=== PATIENT | female | born 1955 | race Caucasian/White ===

== ENCOUNTER → 2021-12-04 16:02 | Outpatient (CLI) | payer MEDICARE, OTHER, SELFPAY ==
--- NOTE | 2021-12-04 | DI.RAD.S_ITS ---
PROCEDURE: XR SHOULDER RT MIN 2V INDICATIONS: RT SHOULDER LIMITED MOVEMENT AFTER FALL TECHNIQUE: 3 views of the shoulder were acquired. COMPARISON: None. FINDINGS: Bones: No fractures or dislocations. Mild acromioclavicular joint and glenohumeral joint osteoarthritic changes are seen. No suspicious bony lesions. Visualized ribs appear intact. Soft tissues: No suspicious soft tissue calcifications. IMPRESSION: Mild right shoulder joint osteoarthritis. No acute fracture or dislocation. Dictated by: Mo Mcpherson M.D. on 12/04/2021 at 16:49 Approved by: Mo Mcpherson M.D. on 12/04/2021 at 16:50
== END ==
DX: S49.91XA Unspecified injury of right shoulder and upper arm, initial encounter (principal); M25.611 Stiffness of right shoulder, not elsewhere classified; M19.011 Primary osteoarthritis, right shoulder; W19.XXXA Unspecified fall, initial encounter
CPT/HCPCS: 73030

== ENCOUNTER 2022-12-04 19:25 | Inpatient (IN) | payer MEDICARE, SELFPAY ==
[2022-12-04] VITALS (8 sets, daily range): BP systolic 94–130; BP diastolic 51–74; PULSE 71–87; RESP 16–22; TEMP 36.9–38.1; O2SAT 95–99; BMI 20.2; BMI 20.6
--- NOTE | 2022-12-04 19:33 | DI.CT.S_ITS ---
PROCEDURE: CT ABDOMEN PELVIS W CON INDICATIONS: RLQ pain TECHNIQUE: After the administration of IV contrast, axial sections were acquired from the lung bases to the pubic symphysis. Coronal and sagittal reformats were performed. For radiation dose reduction, the following was used: automated exposure control, adjustment of mA and/or kV according to patient size. COMPARISON: None. FINDINGS: Image quality: Excellent. Lung bases: There is mild dependent atelectasis bilaterally. Heart: Heart is normal in size. ABDOMEN: Liver: Within the inferior right hepatic lobe in segment 6, there is an oval lesion measuring up to 1.5 cm on series 2, image 36 with a hypervascular eccentric component. Findings likely represent a hemangioma. A hypodense lesion anteriorly in the left hepatic lobe within segment 3 measuring 1.0 cm on series 2, image 22 is suggestive of a slightly hyperdense cyst. Within segment 7, there is a hyperdense focus on series 2, image 12 measuring 0.6 cm which is also nonspecific and may represent a flash filling hemangioma. Gallbladder: Within normal limits without calcified gallstones. Biliary ducts: No biliary ductal dilatation. Pancreas: Unremarkable. Spleen: Normal in size. Adrenal Glands: No adrenal nodules. Kidneys and Ureters: No hydronephrosis. Stomach and Bowel: Stomach and small bowel loops are normal in caliber and wall thickness. The appendix is normal. There is segmental bowel wall thickening within the mid transverse colon with mucosal enhancement and prominent pericolonic fat stranding. There is also heterogeneous infiltration of the adjacent omentum. No associated upstream dilatation to suggest obstruction. Peritoneum: No abnormal intraperitoneal fluid. No free air. Ventral Wall: No hernia. Abdominal Nodes: No retroperitoneal or mesenteric adenopathy by size criteria. Vessels: Aorta and inferior vena cava are normal in size. PELVIS: Pelvic Organs: Unremarkable. Bladder: Unremarkable. Pelvic Nodes: No enlarged lymph nodes. Miscellaneous: No inguinal hernias are seen. Bones: Visualized osseous structures demonstrate no suspicious focal lesions. IMPRESSION: 1. No evidence of appendicitis. 2. Segmental wall thickening in the mid transverse colon with pericolonic fat stranding. Although the findings may represent a localized colitis, the degree of wall thickening and short segment involvement is suspicious for a neoplasm. Recommend further evaluation with colonoscopy. 3. Heterogeneous infiltration of the omentum adjacent to the thickened colonic wall segment may represent reactive inflammatory changes but the differential includes carcinomatosis. 4. Multiple nonspecific hepatic lesions as described. Further characterization may be obtained with a liver protocol MRI. Dictated by: Danyel Davenport M.D. on 12/04/2022 at 20:18 Approved by: Danyel Davenport M.D. on 12/04/2022 at 20:37
--- NOTE | 2022-12-04 19:34 | ED.GENADULT ---
HPI - General Adult General Chief complaint: Abdominal Pain Stated complaint: Rt. Lower abd pain Time Seen by Provider: 12/04/22 19:26 History of Present Illness HPI narrative: 67-year-old woman with history of hypertension, hyperlipidemia developed right lower quadrant pain starting around noon today. She describes it as sharp, stabbing getting to the point where the pain was unrelenting, she was seen in clinic on [facility] and transported to [place] ER via airlift. She reports dry heaving, No fevers, cough, chills. She is had no significant intra-abdominal surgery. She does note over the past couple of days she is had dark foul-smelling stools. Does not note any recent weight changes. Related Data Allergies Allergy/AdvReac Type Severity Reaction Status Date / Time No Known Drug Allergies Allergy Verified 12/04/22 19:50 Review of Systems Review of Systems Narrative: Pertinent positive and negative findings as per HPI Patient History Medical History Hyperlipidemia Hypertension Social History Smoking Status: Never smoker Exam Initial Vital Signs Initial Vital Signs: Vital Signs Temperature 100.6 F H 12/04/22 19:34 Pulse Rate 71 12/04/22 19:34 Respiratory Rate 16 12/04/22 19:34 Blood Pressure 130/74 12/04/22 19:34 Pulse Oximetry 99 12/04/22 19:34 Oxygen Delivery Method Room Air 12/04/22 19:34 General: Pale, appears to be in pain Able to give a complete and coherent history. Well-nourished well-developed HEENT: Moist mucous membranes, normal sclera with reactive pupils, Respiratory: Lungs are clear to auscultation, no wheezing no rales no rhonchi. Full and symmetrical air movement Cardiac: Regular rate and rhythm no murmurs no bruits Abdomen: Soft, significant tenderness right lower quadrant without acute peritoneal signs, no guarding. Good bowel tones, no flank pain Skin: Warm and dry, no rashes Neurologic: Grossly neurologically intact with no obvious asymmetries or abnormalities Extremities: No trauma, well perfused Psych: Cooperative, appropriate insight and affect Course Orders Ordered: ED Orders 12/04/22 19:33 CT abdomen pelvis w con Stat Urinalysis and Microscopic Stat 12/04/22 19:40 Complete Blood Count AUTO DIFF Stat Comprehensive Metabolic Panel Stat Hydromorphone HCl (Hydromorphone 0.5 Mg Inj) 0.5 mg IV Q15MIN PRN PRN Reason: Pain, Last Admin: 12/04/22 20:17 Dose: 0.5 mg Documented By: Discontinued Medications Sodium Chloride (Normal Saline 0.9%) 1,000 mls @ 1,000 mls/hr IV BOLUS ONE Stop: 12/04/22 20:32 Last Admin: 12/04/22 20:04 Dose: 1,000 mls/hr Documented By: Vital Signs Vital signs: Vital Signs - 8 hr 12/04/22 19:34 Temperature 100.6 F H Pulse Rate 71 Respiratory Rate 16 Blood Pressure 130/74 Pulse Oximetry 99 Oxygen Delivery Method Room Air Medical Decision Making Lab Data 12/04/22 19:40 12/04/22 19:40 Labs: Lab Results 12/04/22 12/04/22 Range/Units 19:40 19:40 WBC 11.7 H (4.5-11.0) X10^3/uL RBC 4.64 (4.0-5.2) X10^6/uL Hgb 14.4 (12.0-16.0) g/dL Hct 42.2 (36-46) % MCV 90.8 (80-100) fL MCH 31.1 (26-34) PG MCHC 34.2 (30-36) % RDW 13.4 (11.6-14.8) % Plt Count 196 (150-400) X10^3/uL Neut % (Auto) 90.9 H (50-75) % Lymph % (Auto) 5.0 L (25-40) % [place] % (Auto) 4.0 (3-14) % Eos % (Auto) 0.0 L (2-4) % Baso % (Auto) 0.1 (0-2) % Neut # (Auto) 99501 H (2808-2644) /uL Lymph # (Auto) 600 L (4956-1806) /uL [place] # (Auto) 500 (0-900) /uL Eos # (Auto) 0 (0-450) /uL Baso # (Auto) 0 (0-100) /uL Sodium 135 L (137-145) mmol/L Potassium 3.8 (3.4-5.1) mmol/L Chloride 99 (98-107) mmol/L Carbon Dioxide 29 (22-32) mmol/L BUN 20 H (7-17) mg/dL Creatinine 0.81 (0.52-1.04) mg/dL Estimated GFR > 60 (>60) mL/min BUN/Creatinine Ratio 24.7 H (6-22) Glucose 117 H (80-110) mg/dL Calcium 9.0 (8.4-10.2) mg/dL Total Bilirubin 1.9 H (0.2-1.3) mg/dL AST 40 H (14-36) IU/L ALT 31 (<35) IU/L Alkaline Phosphatase 59 (38-126) U/L Total Protein 7.6 (6.3-8.2) g/dL Albumin 4.6 (3.5-5.0) g/dL Globulin 3.0 (1.7-4.1) g/dL Albumin/Globulin Ratio 1.5 (1.0-2.8) MDM Narrative Medical decision making narrative: CC: Acute right lower quadrant pain, uncertain prognosis Complicating co-morbidities: Hypertension, hyperlipidemia Data collected from: patient, airlift transport staff Social determinants of health that may influence the patients condition: Lives on [facility] Differential considered: Appendicitis, constipation, volvulus Exam documented above, pertinent findings include: Appears to be in moderate pain but able to cooperate fully, moderate right lower quadrant tenderness Lab Test results independently reviewed as above. Pertinent findings: CBC shows slight leukocytosis 11.7 with left shift, no anemia Chemistries show slightly elevated bilirubin at 1.9, AST of 40 ALT and alk phos are unremarkable. Independently reviewed EKG as above Imaging studies independently reviewed: CT scan per radiology: ? 1. No evidence of appendicitis. ? 2. Segmental wall thickening in the mid transverse colon with pericolonic fat stranding.? Although the findings may represent a localized colitis, the degree of wall thickening and short segment involvement is suspicious for a neoplasm.? Recommend further evaluation with colonoscopy. ? 3. Heterogeneous infiltration of the omentum adjacent to the thickened colonic wall segment may represent reactive inflammatory changes but the differential includes carcinomatosis. ? 4. Multiple nonspecific hepatic lesions as described.? Further characterization may be obtained with a liver protocol MRI.? Consultations: Dr Temple, gen surgery Treatments: Fluids, parenteral narcotics for pain control Re-evaluations: Findings and concerns reviewed with patient. She notes that she has had increasing bloating and abdominal pain and most recent colonoscopy was unable to be completed due to redundant transverse colon with the study in 2021. Discussion: 67-year-old woman with severe abdominal pain since noon today. On further questioning she notes that she had a colonoscopy in 2021 was found to have redundant colon so they were not able to complete the study, for the last 6 months they have been trying to reschedule the colonoscopy and she is actually scheduled to have a repeat colonoscopy with a 2 day prep on December 11. Findings reviewed with general surgeon as well as patient. CT scan findings are quite concerning but further diagnosis is going to be needed before any type of transfer can be facilitated if required. In the meantime pain is significant enough that discharge home is not going to be appropriate. We will plan to admit to the General surgery Service, Dr. Temple is writing orders. We will continue maintenance fluid, pain medications and begin GoLYTELY bowel prep immediately. Patient will be admitted to the surgery service. Discharge Plan Departure Patient Disposition: Admitted as Observation Clinical Impression: Abdominal pain, Colon abnormality
[2022-12-04 19:47] LABS: Add Manual Diff / Slide Review NO; Basophils Absolute Auto 0 /uL (0-100); Basophils Percent Auto 0.1 % (0-2); Eosinophils Absolute Auto 0 /uL (0-450); Hematocrit 42.2 % (36-46); Hemoglobin 14.4 g/dL (12.0-16.0); Lymphocytes Absolute Auto 600 /uL (1100-4500); Mean Corpuscular HGB Conc 34.2 % (30-36); Mean Corpuscular Hemoglobin 31.1 PG (26-34); Mean Corpuscular Volume 90.8 fL (80-100); Monocytes Absolute Auto 500 /uL (0-900); Neutrophils Absolute Auto 10600 /uL (1500-7000); Neutrophils Percent Auto 90.9 % (50-75); Platelet Count 196 X10^3/uL (150-400); Red Blood Cell Count 4.64 X10^6/uL (4.0-5.2); Red Cell Distribution Width 13.4 % (11.6-14.8); White Blood Cell Count 11.7 X10^3/uL (4.5-11.0)
[2022-12-04 19:58] LABS: Alanine Aminotransferase 31 IU/L (<35); Albumin 4.6 g/dL (3.5-5.0); Albumin Globulin Ratio 1.5 (1.0-2.8); Alkaline Phosphatase 59 U/L (38-126); Aspartate Aminotransferase 40 IU/L (14-36); BUN Creatinine Ratio 24.7 (6-22); Bilirubin Total 1.9 mg/dL (0.2-1.3); Blood Urea Nitrogen 20 mg/dL (7-17); Carbon Dioxide 29 mmol/L (22-32); Chloride 99 mmol/L (98-107); Estimated Glomerular Filt Rate > 60 mL/min (>60); Glucose 117 mg/dL (80-110); HEMOLYSIS 23 (0-50); Potassium 3.8 mmol/L (3.4-5.1); Sodium 135 mmol/L (137-145); Total Protein 7.6 g/dL (6.3-8.2)
[2022-12-04] MEDS: SODIUM CHLORIDE 0.9% 1,000 ML 1000 ML IV (20:04)
[2022-12-04] MEDS: HYDROMORPHONE 0.5 MG INJ IV ×2 (20:17→23:56)
[2022-12-04 23:17] LABS: Appearance Urine UA CLEAR; Bilirubin Urine UA NEGATIVE (NEGATIVE); Color Urine UA YELLOW; Glucose Urine UA NEGATIVE (Negative); Ketones Urine UA NEGATIVE (NEGATIVE); Leukocyte Esterase Urine UA NEGATIVE (NEGATIVE); Nitrite Urine UA NEGATIVE (Negative); Occult Blood Urine UA NEGATIVE (Negative); Protein Urine UA NEGATIVE (Negative); Urobilinogen Urine UA 0.2 E.U./dL (0.2)
[2022-12-04 23:20] LABS: Carcinoembryonic Antigen 6.9 ng/mL (0.1-3.0)
--- NOTE | 2022-12-04 23:20 | PC.NURSE ---
Called report to Debra PURI. Pt A&Ox4 on transfer with at bedside.
[2022-12-04 23:24] LABS: Bacteria Urine None Seen; Culture Indicated Urine Cult Not Indicated; RBC Urine 0-1/HPF (0-5/HPF); Squamous Epithelial Cell Urine 0-1 /HPF (0-5/HPF); WBC Urine None Seen (0-5/HPF); pH Urine UA 7.5 (4.5-8.0)
[2022-12-04 23:27] LABS: Cancer Antigen 125 < 5.5 U/mL (0-35)
[2022-12-04] MEDS: LACTATED RINGERS 1,000 ML 80 ML IV (23:36)
[2022-12-05] VITALS (18 sets, daily range): BP systolic 91–127; BP diastolic 47–63; PULSE 63–76; RESP 12–22; TEMP 35.9–37.1; O2SAT 95–98; BMI 20.6
[2022-12-05] MEDS: PEG3350/SOD SULF,BICARB,CL/KCL 4,000 ML SOLUTION 2000 ML PO
[2022-12-05] MEDS: ONDANSETRON 4 MG/2 ML INJ IV ×3 (00:01→18:33)
--- NOTE | 2022-12-05 00:26 | PC.ADMIT ---
Addendum entered by Debra Orosco R.N. 12/05/22 01:42: BP post bolus still low at 95/52 w/MAP of 65. Patient reports SBP typically is low 100's. Denies any dizziness/lightheadedness at rest or when sitting up. Will reassess BP in 1 hour. Addendum entered by Debra Orosco R.N. 12/05/22 01:08: Patient vomited 300cc fluid after drinking approximately 15oz of go-lytely prep. Denies nausea but stated it just came up. Rechecked BP and was 102/53. Dr. Temple contacted and informed of emesis after prep and low BP; see new orders. Original Note: [facility] Admission Note: The patient,Eulalia Sykes,67 y/o, was given written information regarding hospital policies, unit procedures and contact persons. Patient's smoking status: Never smoker. Vital Signs - 8 hr 12/04/22 19:34 12/04/22 20:10 12/04/22 20:10 Temperature 100.6 F H Pulse Rate 71 80 Respiratory Rate 16 Blood Pressure 130/74 115/57 L Pulse Oximetry 99 98 Oxygen Delivery Method Room Air Oxygen Flow Rate 12/04/22 20:30 12/04/22 20:30 12/04/22 21:00 Temperature Pulse Rate 75 Respiratory Rate 16 Blood Pressure 116/58 L 111/58 L Pulse Oximetry 95 Oxygen Delivery Method Oxygen Flow Rate 12/04/22 21:00 12/04/22 21:30 12/04/22 21:30 Temperature Pulse Rate 74 72 Respiratory Rate 19 19 Blood Pressure 104/53 L Pulse Oximetry 97 97 Oxygen Delivery Method Oxygen Flow Rate 12/04/22 22:00 12/04/22 22:00 12/04/22 22:30 Temperature Pulse Rate 73 Respiratory Rate 20 Blood Pressure 101/55 L 119/57 L Pulse Oximetry 96 Oxygen Delivery Method Oxygen Flow Rate 12/04/22 22:30 12/04/22 22:30 12/04/22 23:35 Temperature 98.4 F 99.0 F Pulse Rate 87 74 Respiratory Rate 22 20 Blood Pressure 94/51 L Pulse Oximetry 97 96 Oxygen Delivery Method Oxygen Flow Rate 0 12/05/22 00:24 Temperature Pulse Rate Respiratory Rate Blood Pressure Pulse Oximetry Oxygen Delivery Method Room Air Oxygen Flow Rate Patient admitted to room 220 from ER per stretcher but ambulated to bed with SBA. Is alert and oriented. Breath sounds CTA with RA sat of 96%. HRR w/BP low at 96/51 but is asymptomatic. Initially denied nausea but later was having dry heaves so medicated with Zofran with resolution of nausea. BT present but abdomen is tender and complains of 8/10 pain in RLQ; medicated with Dilaudid and pain at reassessment was 3/10. Denies dysuria with urination. Is able to move herself in bed. Due to pain is needing SBA when out of bed. Bilateral calf SCD's placed. Fall risk assessment is moderate but patient verbalizes understanding to call for assistance when getting out of bed so alarm not activated at this time. Instructed in use of call light and bed controls.
[2022-12-05] MEDS: SODIUM CHLORIDE 0.9% 500 ML 1000 ML IV (00:48)
--- NOTE | 2022-12-05 09:03 | CM.DANOTE ---
DCP: Chart review for case, met with patient at bedside, they agree to case management assessment. Completed DCP assessment based on information available. Patient is 67 year old admitted for abdominal pain. She confirms her [place] address [place], [place] where she lives with who is at bedside. 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 PCP: Soni Pacheco at [place], [place] Payer: Medicare DME: None DCP: Home with supportive and medical clearances. Feli Haskins RN, CM Discharge Planning/Care Management CM Discharge Assessment Start: 12/05/22 09:00 Freq: Status: Active Protocol: Document 12/05/22 09:00 BQ (Rec: 12/05/22 09:01 BQ [id number]) Discharge Planning Assessment Assigned Outside Salesman Feli Haskins RN, CM DPOA/Assigned Designee Name at bedside Advance Directives? No History Provided By Patient Has Patient been admitted in last 30 No days? Prior Living Arrangements House Household Members spouse Type of transporation used prior to Drives own vehicle admit Independent with ADL's Yes Is patient alert and oriented? Yes Caregiver for Another No Barriers to Discharge No Discharge Plan Home Referrals Initiated None needed Whiteboard Updated in Patient Room with Yes name and ext. # of Outside Salesman Review Status In Process Next Review Type Continued Stay Review
[2022-12-05] MEDS: HYDROMORPHONE 0.5 MG INJ IV ×2 (09:39→13:44)
[2022-12-05] MEDS: LACTATED RINGERS 1,000 ML 80 ML IV ×3 (09:42→15:45)
[2022-12-05] MEDS: METOCLOPRAMIDE 10 MG/2 ML INJ 5 MG IV ×2 (10:22→18:14)
--- NOTE | 2022-12-05 11:13 | PC.NURSE ---
Addendum entered by Galina Boyd R.N. 12/05/22 18:41: Pt to OR this afternoon. Returned to the floor at 1800. VS WNL. Pt reports nausea. IV reglan given with little relief. IV zofran given. No emesis. Pt has aquacel dressing midline on abdomen covered with abdominal binder. Pt reports no pain. Pt's and daughter are at bedside. Will continue to monitor. Original Note: Day shift: Pt continues to have R abdominal pain. o.5mg IV dilaudid given with adequate relief. MD De Anda came to speak with patient about restarting go-lightly for colonoscopy. Pt drank approximately 10 sips and then vomitted 300cc's of clear and green emesis. Called MD De Anda back to let him know. He ordered NPO diet and likely OR later today. He said he would come up and speak with patient again.
--- NOTE | 2022-12-05 11:47 | PM.HP.1 ---
History of Present Illness History of Present Illness Date Patient Seen: 12/05/22 Time Patient Seen: 11:48 Chief complaint: Rt. Lower abd pain Narrative: Ms. Sykes is a generally healthy 67-year-old woman who was admitted to [facility] 12/04 with complaint abdominal pain. She reports the development of severe right lower quadrant pain with associated bloating. She relays that for the past 2 years she is felt unwell and has noticed marked abdominal distention which is abnormal for her. Apparently during this time she did have a attempted colonoscopy at an outside institution which was incomplete secondary to tortuosity and then had a follow-up colonoscopy performed elsewhere which was perhaps completed but inadequate due to the quality of the preparation. She is actually scheduled for a outpatient colonoscopy next week. When she presented to the emergency department yesterday her laboratory studies were largely unremarkable with the exception of a elevated total bilirubin at 1.9 and a CEA level of 7. CT abdomen pelvis demonstrates abnormal thickening of a segment of transverse colon as well as hyperattenuation of the omentum possibly representing carcinomatosis. On my read of the imaging the small bowel is somewhat dilated and consistent with a partial obstruction. No family history of intestinal malignancy. Following admission an attempt was made to bowel prep the patient and within 20 30 minutes she was nauseous and with emesis and unable to tolerate further prep. We re-tried bowel prep this morning with a similar response. [facility] Medical History Hyperlipidemia Hypertension Social History household members: spouse Smoking Status: Never smoker Meds Home Medications and Allergies Home Medications Medication Instructions Recorded Confirmed Type simvastatin 20 mg tablet 20 mg PO ONCE PM 12/04/22 12/04/22 History Allergies Allergy/AdvReac Type Severity Reaction Status Date / Time No Known Drug Allergies Allergy Verified 12/04/22 19:50 Exam Vital Signs (past 8 hours): - 12/05/22 04:38 12/05/22 07:00 12/05/22 07:00 Temperature 98.7 F 97.3 F L Pulse Rate 70 63 Respiratory Rate 20 19 Blood Pressure 100/50 L 91/47 L Pulse Oximetry 96 97 97 Oxygen Delivery Method Room Air Oxygen Flow Rate 0 0 Oxygen Delivery Method Room Air Oxygen Flow Rate 0 Narrative Exam Narrative: General elderly woman alert oriented uncomfortable. Chest nonlabored respiration Cardiac regular rate and rhythm Abdomen tender right lower quadrant no peritonitis. Mild bloating. Objective Labs 12/04/22 19:40 12/04/22 19:40 Labs: Laboratory Results - last 24 hr 12/04/22 12/04/22 12/04/22 19:40 19:40 19:40 WBC 11.7 H RBC 4.64 Hgb 14.4 Hct 42.2 MCV 90.8 MCH 31.1 MCHC 34.2 RDW 13.4 Plt Count 196 Neut % (Auto) 90.9 H Lymph % (Auto) 5.0 L [place] % (Auto) 4.0 Eos % (Auto) 0.0 L Baso % (Auto) 0.1 Neut # (Auto) 19373 H Lymph # (Auto) 600 L [place] # (Auto) 500 Eos # (Auto) 0 Baso # (Auto) 0 Sodium 135 L Potassium 3.8 Chloride 99 Carbon Dioxide 29 BUN 20 H Creatinine 0.81 Estimated GFR > 60 BUN/Creatinine Ratio 24.7 H Glucose 117 H Calcium 9.0 Total Bilirubin 1.9 H AST 40 H ALT 31 Alkaline Phosphatase 59 Total Protein 7.6 Albumin 4.6 Globulin 3.0 Albumin/Globulin Ratio 1.5 Carcinoembryonic Ag 6.9 H CA 125 Antigen < 5.5 Urine Color Urine Appearance Urine pH Ur Specific [place] Urine Protein Urine Glucose (UA) Urine Ketones Urine Occult Blood Urine Nitrate Urine Bilirubin Urine Urobilinogen Ur Leukocyte Esterase Urine RBC Urine WBC Ur Squamous Epith Cells Urine Bacteria Ur Culture Indicated? 12/04/22 23:10 WBC RBC Hgb Hct MCV MCH MCHC RDW Plt Count Neut % (Auto) Lymph % (Auto) [place] % (Auto) Eos % (Auto) Baso % (Auto) Neut # (Auto) Lymph # (Auto) [place] # (Auto) Eos # (Auto) Baso # (Auto) Sodium Potassium Chloride Carbon Dioxide BUN Creatinine Estimated GFR BUN/Creatinine Ratio Glucose Calcium Total Bilirubin AST ALT Alkaline Phosphatase Total Protein Albumin Globulin Albumin/Globulin Ratio Carcinoembryonic Ag CA 125 Antigen Urine Color Yellow Urine Appearance Clear Urine pH 7.5 Ur Specific [place] 1.010 Urine Protein Negative Urine Glucose (UA) Negative Urine Ketones Negative Urine Occult Blood Negative Urine Nitrate Negative Urine Bilirubin Negative Urine Urobilinogen 0.2 Ur Leukocyte Esterase Negative Urine RBC 0-1/hpf Urine WBC None seen Ur Squamous Epith Cells 0-1 /hpf Urine Bacteria None seen Ur Culture Indicated? Cult not indicated Assessment & Plan Assessment and plan (1) Colon abnormality: Status: Acute Assessment & Plan narrative: Ms. Sykes is a 67-year-old woman admitted to the hospital with symptoms and radiographic findings concerning for potential colonic malignancy with associated partial large bowel obstruction. I had a lengthy discussion with the patient and her where we reviewed her workup and findings. I explained to them that there is an abnormality within the transverse colon which may well represent malignancy and she has a elevated CEA level. With her history of chronic partial obstruction for the past 2 years these findings together are concerning for colonic malignancy. I explained that ideally we would proceed with colonoscopy in order to establish a diagnosis however she has now attempted the prep twice and has been unable to tolerate more than a few oz without profuse emesis. If endoscopic evaluation can not be completed then alternatively we may need to proceed to the operating room for an exploratory laparotomy with possible colectomy. An overview of this operation was discussed with the patient. Operative risks including hemorrhage, infection, anastomotic leak, damage to surrounding structures, were discussed. Their questions have been answered and they are in agreement with this plan.
[2022-12-05] MEDS: PIPERACILLIN/TAZO 3.375 GM in SODIUM CHLORIDE 0.9% 100 ML IV ×2 (15:08→23:07)
--- NOTE | 2022-12-05 15:29 | SUR.OPER ---
Supine on padded OR bed, head on pillow, arms secured on padded arm boards at <90 degrees abduction, legs uncrossed, safety belt at thigh, tape over blanket over lower legs. Gel pad under bilateral heels and 1 pillow under knees.
[2022-12-05] MEDS: BUPIVACAINE LIPOSOME 266 MG/20 ML VIAL INJ (16:12)
[2022-12-05] MEDS: BUPIVACAINE 0.25% W/ EPI (PF) 10 ML VIAL 20 ML INJ (16:45)
--- NOTE | 2022-12-05 17:24 | P.OP_ITS ---
Operative Date/Time/Diagnoses Date of procedure: 12/05/22 Time of procedure: 17:24 Pre-op diagnosis: Colon cancer Post-op diagnosis: other (Colon cancer, peritonitis) Procedure & Clinicians Procedure: Open extended right hemicolectomy Same procedure as scheduled: Yes Indications: 67-year-old woman 2 years of partially obstructive symptoms who presented to the emergency department with abdominal pain CT abdomen demonstrates abnormal thickening of the transverse colon CEA level 7. An attempt was made to bowel prep the patient for diagnostic colonoscopy but she did not tolerate this and given the constellation of findings she elected to proceed to the operating room for an exploratory laparotomy and likely colectomy. Surgeon: Regis De Anda Senior Interactive Producer: Kath Temple Anesthesia Type: General Operative Notes Findings: Peritonitis, perforated colon cancer within the transverse colon. Lymphadenopathy within the mesentery of the transverse and right colon. Specimen(s): other (Peritoneal fluid for cytology, right colon) Estimated Blood Loss (mL): 50 Procedure in detail: Patient was brought to the operating room placed supine on the table. Bilateral lower extremity compression devices were applied. General anesthesia was induced she was intubated with an endotracheal tube. She received 3.375 g of Zosyn prior to the start of the procedure. Chinchilla catheter was sterilely placed. She was prepped and draped in sterile fashion. Time-out was performed. A midline incision was made the abdomen was entered atraumatically. Upon entry to the abdomen there was an obvious colonic perforation with associated peritonitis. The mass was within the mid transverse colon it was firm and there was a perforation with purulent peritonitis associated with this. The remainder of the abdomen was examined the liver was notable for a few hemangioma which had been previously seen on imaging but there was no evidence of hepatic metastasis or diffuse carcinomatosis. Will the colon was inspected and there were significantly enlarged multiple lymph nodes in the mesentery to the transverse colon. Examining the mesentery additional quite enlarged nodes were noted in the path of the ileocolic vessel supplying the right colon. Therefore the decision was made to perform an extended right hemicolectomy. The right colon was then mobilized by dividing the white line of Toldt up to the level of the hepatic flexure. The duodenum was observed and kept posterior out of harm's way. Window within the mesentery at the terminal ileum was made and the bowel was divided with endo SYLVIA stapler blue load. The transverse colon was divided distal to the tumor by at least 5 cm in same fashion. The mesentery to the specimen was taken as close to the takeoff vessels as possible. The mesentery was divided with a combination of LigaSure and suture ligation of the middle colic and ileocolic vessels. A utyd-iv-wena functional and end anastomosis was formed. A crotch stitch was placed and then a enterotomy and a colotomy were made and the anti mesenteric side of the bowel. Using a 3rd staple load the bowel was joint together for formula common channel. The anastomosis was inspected it was widely patent and hemostatic. The common opening was then closed with a running PDS suture and this suture line was then imbricated using interrupted silk suture. We tested the anastomosis and there was no evidence of leak it was without tension and well perfused. There was a very large mesenteric defect so this was not closed. The abdomen was then irrigated with several L of saline until it returned clear. The abdomen was then bowel was then returned to the abdomen and the fascia was closed running fashion using a 1. PDS suture. There was minimal subcutaneous tissue and the skin was closed with raina followed by a sterile dressing. Exparel and 0.25% bupivacaine were used for local anesthetic. The sponge and instrument count at the end of the operation was correct patient was transferred to recovery in stable condition. The assistance of Dr. Sharpe thus was critical for exposure in the formation of the anastomosis. Complications: none Post-operative Condition: stable Disposition: Acute Care
[2022-12-05] MEDS: CELECOXIB 200 MG CAPSULE PO (21:23)
[2022-12-05] MEDS: ACETAMINOPHEN 325 MG TABLET 650 MG PO (23:13)
--- NOTE | 2022-12-06 00:45 | PC.NURSE ---
Patient is alert and oriented. Breath sounds CTA with RA sat of 97%. HRR. Denies nausea. Has taken very little po except for ice chips since return from surgery; provided with apple juice. BT hypoactive in LUQ but absent in other quadrants; no flatus as yet. Dressing to midline abdomen is intact with dime size area of light drainage mid dressing; wearing abdominal binder. Denies abdominal pain. Indwelling catheter is patent; urine is clear ras. Is able to turn herself in bed but has not yet been out of bed. Wearing bilateral calf SCD's. Fall risk score is low. Spouse rooming in.
[2022-12-06] MEDS: LACTATED RINGERS 1,000 ML 80 ML IV (01:10)
[2022-12-06 04:59] VITALS: BP 95/54; PULSE 67; RESP 18; TEMP 37; O2SAT 96
[2022-12-06] MEDS: ACETAMINOPHEN 325 MG TABLET 650 MG PO ×4 (05:02→23:01)
[2022-12-06 05:10] LABS: BUN Creatinine Ratio 20.5 (6-22); Blood Urea Nitrogen 15 mg/dL (7-17); Carbon Dioxide 27 mmol/L (22-32); Chloride 102 mmol/L (98-107); Estimated Glomerular Filt Rate > 60 mL/min (>60); Glucose 132 mg/dL (80-110); HEMOLYSIS < 15 (0-50); Potassium 3.9 mmol/L (3.4-5.1); Sodium 131 mmol/L (137-145)
[2022-12-06 05:11] LABS: Add Manual Diff / Slide Review NO; Basophils Absolute Auto 0 /uL (0-100); Eosinophils Absolute Auto 0 /uL (0-450); Hematocrit 34.3 % (36-46); Hemoglobin 11.9 g/dL (12.0-16.0); Lymphocytes Absolute Auto 600 /uL (1100-4500); Lymphocytes Percent Auto 4.4 % (25-40); Mean Corpuscular HGB Conc 34.5 % (30-36); Mean Corpuscular Hemoglobin 31.2 PG (26-34); Mean Corpuscular Volume 90.3 fL (80-100); Monocytes Absolute Auto 600 /uL (0-900); Monocytes Percent Auto 4.6 % (3-14); Neutrophils Absolute Auto 12500 /uL (1500-7000); Platelet Count 171 X10^3/uL (150-400); Red Cell Distribution Width 13.6 % (11.6-14.8); White Blood Cell Count 13.7 X10^3/uL (4.5-11.0)
[2022-12-06] MEDS: PIPERACILLIN/TAZO 3.375 GM in SODIUM CHLORIDE 0.9% 100 ML IV ×3 (06:49→23:01)
[2022-12-06 07:00] VITALS: BP 110/60; PULSE 62; RESP 16; TEMP 36.4; O2SAT 97
[2022-12-06 08:44] LABS: Cancer (Carbohydrate) Ag 19-9 20 U/mL (0-35)
[2022-12-06] MEDS: CELECOXIB 200 MG CAPSULE PO ×2 (09:04→20:32)
--- NOTE | 2022-12-06 10:44 | PM.PNPO.1 ---
Subjective Subjective Date Patient Seen: 12/06/22 Time Patient Seen: 10:44 Interval history: No acute events overnight. Tolerated clear liquids. Minimal pain well controlled with nonnarcotic medication. Vital signs unremarkable Exam Vital Signs (past 8 hours): - 12/06/22 04:59 12/06/22 07:00 12/06/22 07:00 Temperature 98.6 F 97.6 F Pulse Rate 67 62 Respiratory Rate 18 16 Blood Pressure 95/54 L 110/60 Pulse Oximetry 96 97 Oxygen Delivery Method Room Air Oxygen Flow Rate 0 0 12/06/22 07:00 Temperature Pulse Rate Respiratory Rate Blood Pressure Pulse Oximetry 97 Oxygen Delivery Method Room Air Oxygen Flow Rate 0 Oxygen Delivery Method Room Air Oxygen Flow Rate 0 Narrative Exam Narrative: General adult woman alert oriented no acute distress Chest nonlabored respiration Abdomen soft appropriately tender to palpation. Extremities warm well perfused Objective Labs 12/06/22 04:45 12/06/22 04:45 Labs: Laboratory Results - last 24 hr 12/04/22 12/06/22 12/06/22 19:40 04:45 04:45 WBC 13.7 H RBC 3.80 L Hgb 11.9 L Hct 34.3 L MCV 90.3 MCH 31.2 MCHC 34.5 RDW 13.6 Plt Count 171 Neut % (Auto) 91.0 H Lymph % (Auto) 4.4 L [place] % (Auto) 4.6 Eos % (Auto) 0.0 L Baso % (Auto) 0.0 Neut # (Auto) 38334 H Lymph # (Auto) 600 L [place] # (Auto) 600 Eos # (Auto) 0 Baso # (Auto) 0 Sodium 131 L Potassium 3.9 Chloride 102 Carbon Dioxide 27 BUN 15 Creatinine 0.73 Estimated GFR > 60 BUN/Creatinine Ratio 20.5 Glucose 132 H Calcium 8.0 L CA 19-9 Antigen 20 PFSH Medical History Hyperlipidemia Hypertension Social History household members: spouse Smoking Status: Never smoker Assessment & Plan Post-op Postoperative Procedures: Procedures Operation Date: 12/05/22 14:30 Actual Procedure Side Surgeon p Exploratory Laparotomy and Right Hemicolectomy Not Applicable Regis De Anda MD Postoperative status narrative: 67-year-old woman postoperative day 1 status post extended right hemicolectomy for obstructing colon cancer. Overall she is doing well and appropriate for postoperative day 1. -remove Chinchilla catheter -discontinue IV fluids -full liquid diet -SCDs and prophylactic Lovenox for VTE prophylaxis -continue IV Zosyn, antibiotics for a total of 5 days for intraoperative finding of purulent peritonitis
--- NOTE | 2022-12-06 11:04 | CM.DPNOTE ---
Patient is POD #1 Exploratory lap with colectomy. CM team following for progression of care. As per conversation yesterday, patients goal is to return home to [place] ([place]) with supportive .
[2022-12-06 12:25] VITALS: BP 121/67; PULSE 66; RESP 16; TEMP 36.4; O2SAT 98
[2022-12-06] MEDS: TRAMADOL 50 MG TABLET PO (12:46)
--- NOTE | 2022-12-06 14:02 | PT.IIE ---
Current Diagnoses Disease of intestine, unspecified (12/04/22) Surgery Performed Operation Date: 12/05/22 14:30 Actual Procedures p Exploratory Laparotomy and Right Hemicolectomy(Not Applicable) - Regis De Anda MD Medical History (Last Reviewed 12/05/22 @ 11:52 by Regis De Anda MD) Hyperlipidemia Hypertension Physical Therapy Inpatient Evaluation/Re-Eval M1 PT/OT-IP Prior Functional Status Start: 12/06/22 12:30 Freq: NEEDED Status: Active Protocol: Document 12/08/22 12:16 [facility] (Rec: 12/06/22 14:23 [facility] [id number]) Medical Review Prior Functional Status Medical History Reviewed Yes Mobility and Gait prior mobility is independent, pt is active and does cross fit in her gym at home Social History Household Members spouse Living Arrangements House Number of Floors (Floors) Two Floors Number of Stairs To Enter/Railing? 1 set of stairs to go up to get into the home Home Environment Standard Height Toilet Employment Status Retired M2 PT-IP Current Condition Start: 12/06/22 12:30 Freq: NEEDED Status: Active Protocol: Document 12/08/22 12:16 [facility] (Rec: 12/06/22 14:23 [facility] [id number]) Physical Therapy Current Condition Current Condition Evaluation Date 12/06/22 Treatment Diagnosis weakness s/p R hemicolectomy Onset Date 12/04/22 M3 PT-IP Subjective Start: 12/06/22 12:30 Freq: NEEDED Status: Active Protocol: Document 12/08/22 12:16 [facility] (Rec: 12/06/22 14:23 [facility] [id number]) Subjective Physical Therapy Visit Type Type Initial Evaluation Visit Start Time 13:25 Visit Stop Time 14:00 Total Visit Minutes 35 Therapy Pain Assessment Pain When Pain Assessed At Rest Pain Present Pain Present Pain Reported Location Right Abdomen Pain Management Techniques Timing of Activity with Medications M4 PT-IP Mobility and Gait Start: 12/06/22 12:30 Freq: NEEDED Status: Active Protocol: Document 12/08/22 12:16 [facility] (Rec: 12/06/22 14:23 [facility] [id number]) PT-Bed Mobility Assessment Rolling Type of Rolling Roll to Right Supine to Sit Supine to Sit Contact Guard Assistance Sit to Supine Sit to Supine Contact Guard Assistance Scooting Scooting to Edge of Bed Contact Guard Assistance Scooting Up and Down in Bed Contact Guard Assistance PT-Transfer Assessment Sit to and From Stand Sit to and from Stand Contact Guard Assistance Equipment Transfer Assistive Device Gait Belt,Front Wheeled Walker Orthotic/Prosthetic Devices or Brace: No Transfers Transfer Destination Bed Transfer Technique pt ambulated Transfer Ability Level of Assist Contact Guard Assistance Comments Mobility Comments pt is demonstrating CGA for all mobility Gait Assessment Gait Gait Assistance Required: Contact Guard Assist Distance (Feet) 500 Able to Maintain Weight Bearing Status Yes During Gait Assistive Devices Assistive Device Front Wheeled Walker Orthotic/Prosthetic Devices or Brace: No Gait Deviations General Gait Pattern Flexed Trunk Factors Limiting Gait Function Factors Limiting Gait Function Decreased Activity Tolerance Comments Gait Comments pt did really well with gait and walked over 500 feet, she noted that it felt really good to walk. Pt used fww for support and felt good using the walker at this time. Pt returned to bed following gait in the hallway and compression pump was placed back on her lower extremities. Her call light was left in reach and she had family in room visiting. M5 PT-IP Objective Assessments Start: 12/06/22 12:30 Freq: NEEDED Status: Active Protocol: Document 12/08/22 12:16 [facility] (Rec: 12/06/22 14:23 [facility] [id number]) Orientation Orientation/Cognition Level of Alertness Alert Language Function Ability No Deficits Noted Safety Awareness Understands Safety Issues Memory Description No Deficits Noted Gross Range of Motion Upper Extremity ROM Assessment Within Functional Limits Lower Extremity ROM Assessment Within Functional Limits Strength Upper Extremity Strength Assessment Within Functional Limits Lower Extremity Strength Assessment Within Functional Limits Coordination Assessment Gross Coordination Gross Coordination WNL Muscle Tone Muscle Tone WNL Yes M6 PT-IP Treatment Start: 12/06/22 12:30 Freq: NEEDED Status: Active Protocol: Document 12/08/22 12:16 [facility] (Rec: 12/06/22 14:23 [facility] [id number]) Physical Therapy Treatment Exercises Exercises Ankle Pumps M7 PT-IP Assessment and Plan Start: 12/06/22 12:30 Freq: NEEDED Status: Active Protocol: Document 12/08/22 12:16 [facility] (Rec: 12/06/22 14:23 [facility] [id number]) PT Summary Assessment and Plan Potential Rehabilitation Potential Excellent Status of Condition at Evaluation Stable Summary Impairments Pain,Gait,Activity Tolerance Goals Bed Mobility Goal Independent Transfer Goal Standby Assistance Gait Goal Standby Assistance Other Goals pt is able to ambulate up and down 2 sets of stairs Days to Meet Goals 5 Frequency of Treatment Frequency Of Treatment Once a Day Treatment Plan Physical Therapy Treatment Plan Bed Mobility Training,Transfer Training,Gait Training Other Recommendations and Next Treatment pt may want a fww for home use Focus at DC Weight Bearing Status Weight Bearing Status Full Weight Bearing Recommendations To Nursing Amount of Assist Needed 1 Person Assist Discharge Recommendations PT Discharge Recommendations Home with Assistance Other Discharge Recommendations pt's will assist at home, pt needs to be able to go up/down stairs. She may go to her dad's in [facility] for a few days first prior to her home on [place] as there are no stairs at her dad's Equipment Needed for Home Before possibly fww if she is still Discharge feeling like she needs it Transportation Needs at Discharge Private Vehicle
[2022-12-06 16:45] VITALS: BP 114/62; PULSE 71; RESP 18; TEMP 36.3; O2SAT 97
[2022-12-06 20:00] VITALS: BP 105/67; PULSE 73; RESP 73; TEMP 37.4; O2SAT 96
[2022-12-06] MEDS: SODIUM CHLORIDE 0.9% FLUSH 10 ML IV (20:32)
[2022-12-07] MEDS: ACETAMINOPHEN 325 MG TABLET 650 MG PO ×3 (05:16→17:47)
--- NOTE | 2022-12-07 05:34 | PC.NURSE ---
Pt ambulated in the hallway twice tonight, first time with the FWW and 2nd time without it. Still not passing flatus.
[2022-12-07 05:42] LABS: Add Manual Diff / Slide Review NO; Basophils Absolute Auto 0 /uL (0-100); Basophils Percent Auto 0.2 % (0-2); Eosinophils Absolute Auto 100 /uL (0-450); Eosinophils Percent Auto 1.2 % (2-4); Hematocrit 31.5 % (36-46); Hemoglobin 10.9 g/dL (12.0-16.0); Lymphocytes Absolute Auto 700 /uL (1100-4500); Lymphocytes Percent Auto 9.5 % (25-40); Mean Corpuscular HGB Conc 34.7 % (30-36); Mean Corpuscular Hemoglobin 31.6 PG (26-34); Monocytes Absolute Auto 400 /uL (0-900); Monocytes Percent Auto 5.1 % (3-14); Neutrophils Absolute Auto 6300 /uL (1500-7000); Platelet Count 157 X10^3/uL (150-400); Red Blood Cell Count 3.46 X10^6/uL (4.0-5.2); Red Cell Distribution Width 13.6 % (11.6-14.8); White Blood Cell Count 7.5 X10^3/uL (4.5-11.0)
[2022-12-07 05:52] LABS: Blood Urea Nitrogen 12 mg/dL (7-17); Carbon Dioxide 27 mmol/L (22-32); Chloride 104 mmol/L (98-107); Estimated Glomerular Filt Rate > 60 mL/min (>60); Glucose 97 mg/dL (80-110); HEMOLYSIS < 15 (0-50); Potassium 3.8 mmol/L (3.4-5.1); Sodium 133 mmol/L (137-145)
[2022-12-07] MEDS: PIPERACILLIN/TAZO 3.375 GM in SODIUM CHLORIDE 0.9% 100 ML IV ×3 (06:48→22:29)
[2022-12-07 07:00] VITALS: BP 99/60; PULSE 66; RESP 16; TEMP 37.3; O2SAT 97
--- NOTE | 2022-12-07 09:00 | PT.IPTN ---
Current Diagnoses Disease of intestine, unspecified (12/04/22) Surgery Performed Operation Date: 12/05/22 14:30 Actual Procedures p Exploratory Laparotomy and Right Hemicolectomy(Not Applicable) - Regis De Anda MD Physical Therapy Treatment Note M2 PT-IP Current Condition Start: 12/06/22 12:30 Freq: NEEDED Status: Active Protocol: Document 12/06/22 14:02 [facility] (Rec: 12/06/22 14:23 [facility] [id number]) Physical Therapy Current Condition Current Condition Evaluation Date 12/06/22 Treatment Diagnosis weakness s/p R hemicolectomy Onset Date 12/04/22 M3 PT-IP Subjective Start: 12/06/22 12:30 Freq: NEEDED Status: Active Protocol: Document 12/07/22 09:47 TS (Rec: 12/07/22 10:01 TS [id number]) Subjective Physical Therapy Visit Type Type Treatment Note Visit Start Time 09:00 Visit Stop Time 09:15 Total Visit Minutes 15 Number of SHORTHAND REPORTER Visits 1 Therapy Pain Assessment Pain When Pain Assessed During Mobility Pain Present Pain Present Pain Reported Location Right Abdomen Pain Management Techniques Timing of Activity with Medications M4 PT-IP Mobility and Gait Start: 12/06/22 12:30 Freq: NEEDED Status: Active Protocol: Document 12/07/22 09:47 TS (Rec: 12/07/22 10:01 TS [id number]) PT-Bed Mobility Assessment Supine to Sit Supine to Sit Standby Assistance Scooting Scooting to Edge of Bed Standby Assistance PT-Transfer Assessment Sit to and From Stand Sit to and from Stand Standby Assistance Equipment Transfer Assistive Device None,Gait Belt Orthotic/Prosthetic Devices or Brace: No Comments Mobility Comments Pt is SBA for all bed mobility with slow/cautious movements. She performed sit to stand x1 SBA with no AD. She ambulated ~400' SBA with no AD, pt slightly unsteady and guarded, she keeps hands to her abdomen for comfort. She performed stairs X12 with bilateral handrail assist step over step, no buckling or LOB . Pt ambulated back to room, was left sitting EOB for breakfast, call light within reach and all needs met. Gait Assessment Gait Gait Assistance Required: Standby Assistance Distance (Feet) 400 Able to Maintain Weight Bearing Status Yes During Gait Assistive Devices Assistive Device None,Gait Belt Orthotic/Prosthetic Devices or Brace: No Factors Limiting Gait Function Factors Limiting Gait Function Decreased Activity Tolerance, Poor Balance Comments Gait Comments See mobility comments. Stair Climbing Assessment Evaluation Level of Assist On Stairs Standby Assistance Devices Stair Climbing Assistive Devices Left Railing,Right Railing Technique/Endurance Stair Climbing Direction Ascend and Descend Stair Climbing Technique Step Over Step Number of Steps Climbed 12 Comments Stair Climbing Comments See mobility comments. M5 PT-IP Objective Assessments Start: 12/06/22 12:30 Freq: NEEDED Status: Active Protocol: Document 12/06/22 14:02 [facility] (Rec: 12/06/22 14:23 [facility] [id number]) Orientation Orientation/Cognition Level of Alertness Alert Language Function Ability No Deficits Noted Safety Awareness Understands Safety Issues Memory Description No Deficits Noted Gross Range of Motion Upper Extremity ROM Assessment Within Functional Limits Lower Extremity ROM Assessment Within Functional Limits Strength Upper Extremity Strength Assessment Within Functional Limits Lower Extremity Strength Assessment Within Functional Limits Coordination Assessment Gross Coordination Gross Coordination WNL Muscle Tone Muscle Tone WNL Yes M6 PT-IP Treatment Start: 12/06/22 12:30 Freq: NEEDED Status: Active Protocol: Document 12/06/22 14:02 [facility] (Rec: 12/06/22 14:23 [facility] [id number]) Physical Therapy Treatment Exercises Exercises Ankle Pumps M7 PT-IP Assessment and Plan Start: 12/06/22 12:30 Freq: NEEDED Status: Active Protocol: Document 12/07/22 09:47 TS (Rec: 12/07/22 10:01 TS [id number]) PT Summary Assessment and Plan Potential Rehabilitation Potential Excellent Summary Impairments Pain,Gait,Activity Tolerance Progress Towards Goals Progressing Toward Goals Assessment Summary Pt is progressing well with her mobility this session. She performed all bed mobility SBA with slow/cautious movements. She was SBA for sit to stands with no AD. She ambulated ~400' SBA with no AD , is slightly unsteady without AD and hands folded on abdomen for comfort, she has no buckling or LOB. She progressed to stairs x12 with bilateral handrail assist. PT is recommending return home with assist from spouse. Goals Bed Mobility Goal Independent Transfer Goal Standby Assistance Gait Goal Standby Assistance Other Goals pt is able to ambulate up and down 2 sets of stairs Days to Meet Goals 5 Frequency of Treatment Frequency Of Treatment Once a Day Treatment Plan Physical Therapy Treatment Plan Bed Mobility Training,Transfer Training,Gait Training Other Recommendations and Next Treatment pt may want a fww for home use Focus at DC Weight Bearing Status Weight Bearing Status Full Weight Bearing Recommendations To Nursing Amount of Assist Needed Standby Assistance Discharge Recommendations PT Discharge Recommendations Home with Assistance Other Discharge Recommendations Will be staying at dad's house after d/c. Equipment Needed for Home Before possibly fww if she is still Discharge feeling like she needs it Transportation Needs at Discharge Private Vehicle
[2022-12-07] MEDS: ENOXAPARIN 40 MG/0.4 ML SYRINGE SUBCUT (09:23)
[2022-12-07] MEDS: CELECOXIB 200 MG CAPSULE PO ×2 (09:23→22:29)
--- NOTE | 2022-12-07 09:42 | OT.IP.EVAL ---
Current Diagnoses Disease of intestine, unspecified (12/04/22) Surgery Performed Operation Date: 12/05/22 14:30 Actual Procedures p Exploratory Laparotomy and Right Hemicolectomy(Not Applicable) - Regis De Anda MD Past Medical History (Last Reviewed 12/05/22 @ 11:52 by Regis De Anda MD) Hyperlipidemia Hypertension Occupational Therapy Inpatient Evaluation/Re-Eval M1 PT/OT-IP Prior Functional Status Start: 12/06/22 12:30 Freq: NEEDED Status: Active Protocol: Document 12/07/22 13:09 CGR (Rec: 12/07/22 13:23 CGR [id number]) Medical Review Prior Functional Status Medical History Reviewed Yes Communication pt is an effective verbal communicator Mobility and Gait prior mobility is independent, pt is active and does cross fit in her gym at home Activities of Daily Living and IADL's Pt is IND in all ADLs and IADLs Social History Household Members spouse Living Arrangements House Number of Floors (Floors) Two Floors Number of Stairs To Enter/Railing? 1 set of stairs to go up to get into the home Home Environment Standard Height Toilet Employment Status Retired Additional Social History Comment Pt has no DME. Pt states that she may go stay with her father in [place] for a few days upon being discharged as he has a single story home. M2 OT-IP Current Condition Start: 12/07/22 13:09 Freq: Status: Active Protocol: Document 12/07/22 13:09 CGR (Rec: 12/07/22 13:23 CGR [id number]) Occupational Therapy Current Condition Current Condition Evaluation Date 12/07/22 Treatment Diagnosis exlap for obstructing colon Diagnosis Onset Date 12/04/22 M3 OT- IP Subjective and Pain Start: 12/07/22 13:09 Freq: Status: Active Protocol: Document 12/07/22 13:09 CGR (Rec: 12/07/22 13:23 CGR [id number]) OT- Subjective Occupational Therapy Visit Type Type Initial Evaluation Visit Start Time 09:22 Visit Stop Time 09:42 Total Visit Minutes 20 Notes Pt is finishing breakfast when OT entered. OT Pain Assessment Pain When Pain Assessed At Rest Pain Present Pain Present Pain Reported Location Right Abdomen Scale Used did not rate Management Techniques Modification of Treatment,Re- positioning M4 OT- IP ADL's Start: 12/07/22 13:09 Freq: Status: Active Protocol: Document 12/07/22 13:09 CGR (Rec: 12/07/22 13:23 CGR [id number]) OT [id number] General Evaluation Self-Feeding Ability Independent OT ADL-Grooming General Evaluation Grooming Ability Independent Areas Needing Assistance Retrieving/Set-up of Grooming Items,Face Washing Comments OT Grooming Comments standing at sink OT ADL-Oral Care General Eval Oral Care Ability Independent Comments Oral Care Comments standing at sink OT ADL-Dressing General Eval Lower Body Dressing Ability Independent Areas Needing Assistance Socks Comments OT Dressing Comments seated EOB, educated on use of deputy prosecuting attorney for ease or donning and doffing LB dressing. OT ADL-Toileting General Evaluation Toileting Ability Independent OT ADL-Bathing Comments OT Bathing Comments not performed M5 OT- IP IADL's Start: 12/07/22 13:09 Freq: Status: Active Protocol: Document 12/07/22 13:09 CGR (Rec: 12/07/22 13:23 CGR [id number]) OT-Instrumental Activities of Daily Living Deficits IADL Deficits Identified No Deficits Home Safety Awareness Awareness of Need for Assistance at Home Good Awareness Ability to Problem Solve Emergency Able to Problem Solve Situations Medication Management Medication Management No Deficits Identified Money Management Money Management No Deficits Identified Meal Preparation Meal Preparation No Deficits Identified Food Checkers And Cashiers Supervisor Food Checkers And Cashiers Supervisor No Deficits Identified M6 OT- IP Functional Cognition Start: 12/07/22 13:09 Freq: Status: Active Protocol: Document 12/07/22 13:09 CGR (Rec: 12/07/22 13:23 CGR [id number]) Cognitive Factors Limiting Selfcare Function Cognitive Ability Level of Alertness Alert Patient Orientation Name,Age,Birthday,Month,Date, Year,Day of Week,Place, Situation Attention Span Ability Capable of Focused Attention, Capable of Sustained Attention Ability to Follow Commands Able to Follow Multi-Step Commands OT- Vision and Hearing OT- Hearing Assessment OT- Hearing Assessment WFL OT- Vision Assessment Visual Acuity WFL Visual Attentiveness WFL Occular Pursuits WFL Visual Convergence WFL M7 OT- IP Mobility and Balance Start: 12/07/22 13:09 Freq: Status: Active Protocol: Document 12/07/22 13:09 CGR (Rec: 12/07/22 13:23 CGR [id number]) OT-Transfer Assessment Sit to and From Stand Sit to and from Stand Independent Transfers Transfer Ability Independent Devices Transfer Assistive Devices None Comments Mobility Comments mobility around to room OT- Balance Assessment Sitting Balance and Reactions Static Sitting Balance Ability Normal Dynamic Sitting Balance Ability Normal M8 OT- IP Objective Assessments Start: 12/07/22 13:09 Freq: Status: Active Protocol: Document 12/07/22 13:09 CGR (Rec: 12/07/22 13:23 CGR [id number]) OT Gross Range of Motion Upper Extremity Range of Motion Assessment Within Functional Limits OT Strength Upper Extremity Strength Assessment Within Functional Limits Comments Strength Comments 4/5 OT- Coordination Assessment Upper Extremity Finger to Nose Test Within Functional Limits Finger Tapping Test Within Functional Limits OT-Muscle Tone Assessment Muscle Tone WNL Yes OT Sensation Assessment Edema Edema Absent M9 OT- IP Assessment and Plan Start: 12/07/22 13:09 Freq: Status: Active Protocol: Document 12/07/22 13:09 CGR (Rec: 12/07/22 13:23 CGR [id number]) OT Summary Assessment and Plan Potential Rehabilitation Potential Excellent Analytic Complexity at Evaluation Low Summary Progress Towards Goals Safe For Discharge,Goals Met Assessment Summary Pt presents as a low complexity evaluation s/p admit for ex lap. Pt is currently close to her baseline for ADLs and functional mobility. No further OT needs. Frequency of Treatment Frequency Of Treatment Discharge Discharge Recommendations OT Discharge Recommendations Home Transportation Needs at Discharge Private Vehicle
[2022-12-07] MEDS: SODIUM CHLORIDE 0.9% FLUSH 10 ML IV ×2 (11:00→22:29)
[2022-12-07 13:40] VITALS: BP 103/66; PULSE 66; TEMP 36.6; O2SAT 97
--- NOTE | 2022-12-07 18:05 | PM.PN.1 ---
Subjective Subjective Date Patient Seen: 12/07/22 Time Patient Seen: 18:05 Interval history: Doing well. Tolerating full liquid diet. Walking a lot. She has passed some flatus today. Exam Vital Signs (past 8 hours): - 12/07/22 13:40 Temperature 97.9 F Pulse Rate 66 Blood Pressure 103/66 Pulse Oximetry 97 Oxygen Flow Rate 0 Oxygen Delivery Method Room Air Oxygen Flow Rate 0 Const General: No acute distress Objective Labs 12/07/22 04:55 12/07/22 04:55 Labs: Laboratory Results - last 24 hr 12/07/22 12/07/22 04:55 04:55 WBC 7.5 RBC 3.46 L Hgb 10.9 L Hct 31.5 L MCV 91.0 MCH 31.6 MCHC 34.7 RDW 13.6 Plt Count 157 Neut % (Auto) 84.0 H Lymph % (Auto) 9.5 L [place] % (Auto) 5.1 Eos % (Auto) 1.2 L Baso % (Auto) 0.2 Neut # (Auto) 6300 Lymph # (Auto) 700 L [place] # (Auto) 400 Eos # (Auto) 100 Baso # (Auto) 0 Sodium 133 L Potassium 3.8 Chloride 104 Carbon Dioxide 27 BUN 12 Creatinine 0.86 Estimated GFR > 60 BUN/Creatinine Ratio 14.0 Glucose 97 Calcium 8.0 L PFSH Medical History Hyperlipidemia Hypertension Social History household members: spouse Smoking Status: Never smoker Assessment & Plan Assessment and plan (1) Colon abnormality: Status: Acute Plan Doing well on postoperative day 2 from an extended right hemicolectomy Advanced to regular diet
[2022-12-07 19:00] VITALS: BP 102/49; PULSE 68; RESP 17; TEMP 36.6; O2SAT 97
[2022-12-08 05:39] LABS: BUN Creatinine Ratio 13.9 (6-22); Blood Urea Nitrogen 11 mg/dL (7-17); Carbon Dioxide 28 mmol/L (22-32); Chloride 104 mmol/L (98-107); Estimated Glomerular Filt Rate > 60 mL/min (>60); Glucose 99 mg/dL (80-110); HEMOLYSIS < 15 (0-50); Potassium 3.6 mmol/L (3.4-5.1); Sodium 135 mmol/L (137-145)
[2022-12-08 05:41] LABS: Add Manual Diff / Slide Review NO; Basophils Absolute Auto 0 /uL (0-100); Basophils Percent Auto 0.3 % (0-2); Eosinophils Absolute Auto 300 /uL (0-450); Eosinophils Percent Auto 2.7 % (2-4); Hematocrit 35.3 % (36-46); Hemoglobin 12.2 g/dL (12.0-16.0); Lymphocytes Absolute Auto 800 /uL (1100-4500); Lymphocytes Percent Auto 8.4 % (25-40); Mean Corpuscular HGB Conc 34.6 % (30-36); Mean Corpuscular Hemoglobin 31.5 PG (26-34); Mean Corpuscular Volume 91.2 fL (80-100); Monocytes Absolute Auto 600 /uL (0-900); Monocytes Percent Auto 5.8 % (3-14); Neutrophils Absolute Auto 8200 /uL (1500-7000); Neutrophils Percent Auto 82.8 % (50-75); Platelet Count 206 X10^3/uL (150-400); Red Blood Cell Count 3.87 X10^6/uL (4.0-5.2); Red Cell Distribution Width 13.3 % (11.6-14.8); White Blood Cell Count 9.9 X10^3/uL (4.5-11.0)
[2022-12-08] MEDS: PIPERACILLIN/TAZO 3.375 GM in SODIUM CHLORIDE 0.9% 100 ML IV (05:57)
[2022-12-08] MEDS: ACETAMINOPHEN 325 MG TABLET 650 MG PO ×3 (06:03→16:48)
--- NOTE | 2022-12-08 06:13 | PC.NURSE ---
Pt ambulating in the room tonight. she states I am passing gas but is less, c/o that her abdomen feels more sore tonight and slightly more distended. Pt not taking much of her liquid diet,
[2022-12-08 07:00] VITALS: BP 120/72; PULSE 60; RESP 18; TEMP 36.1; O2SAT 100; O2SAT 95
[2022-12-08] MEDS: METOCLOPRAMIDE 10 MG/2 ML INJ 5 MG IV (08:55)
[2022-12-08] MEDS: CELECOXIB 200 MG CAPSULE PO ×2 (08:55→22:01)
[2022-12-08] MEDS: SODIUM CHLORIDE 0.9% FLUSH 10 ML IV ×2 (08:56→22:11)
[2022-12-08] MEDS: SIMETHICONE 80 MG TABLET PO (09:35)
--- NOTE | 2022-12-08 10:53 | PT-IP ANOTE ---
Pt refusing PT at this time, states she just got up. She would like to do stairs in the afternoon. Will attempt to see later today.
--- NOTE | 2022-12-08 13:53 | PT.IPTN ---
Current Diagnoses Disease of intestine, unspecified (12/04/22) Surgery Performed Operation Date: 12/05/22 14:30 Actual Procedures p Exploratory Laparotomy and Right Hemicolectomy(Not Applicable) - Regis De Anda MD Physical Therapy Treatment Note M2 PT-IP Current Condition Start: 12/06/22 12:30 Freq: NEEDED Status: Active Protocol: Document 12/06/22 14:02 AMH (Rec: 12/06/22 14:23 AMH [id number]) Physical Therapy Current Condition Current Condition Evaluation Date 12/06/22 Treatment Diagnosis weakness s/p R hemicolectomy Onset Date 12/04/22 M3 PT-IP Subjective Start: 12/06/22 12:30 Freq: NEEDED Status: Active Protocol: Document 12/08/22 14:30 TS (Rec: 12/08/22 14:39 TS [id number]) Subjective Physical Therapy Visit Type Type Treatment Note Visit Start Time 13:53 Visit Stop Time 14:01 Total Visit Minutes 8 Number of OUTPATIENT COORDINATOR Visits 2 Physical Therapy Visit Comments Patient Comments Pt reports not having much pain, is more concerned about her bloating. Agreeable to PT. Therapy Pain Assessment Pain When Pain Assessed At Rest Pain Present Pain Present Denied Pain M4 PT-IP Mobility and Gait Start: 12/06/22 12:30 Freq: NEEDED Status: Active Protocol: Document 12/08/22 14:30 TS (Rec: 12/08/22 14:39 TS [id number]) PT-Bed Mobility Assessment Supine to Sit Supine to Sit Standby Assistance Scooting Scooting to Edge of Bed Standby Assistance Scooting Up and Down in Bed Standby Assistance PT-Transfer Assessment Sit to and From Stand Sit to and from Stand Standby Assistance Equipment Transfer Assistive Device None,Gait Belt Orthotic/Prosthetic Devices or Brace: No Comments Mobility Comments Pt performed Supine to sit SBA with BUE support pushing from bed. She stood with no AD SBA with good posture and no retroleaning. She ambulated ~ 400' SBA with no AD, arms at side with step thru gait. She performed stairs x15 SBA with BUE support on handrails, descended backwards stepping on stairs. Ptambulated back to room, was left sitting EOB with spouse and friends. Gait Assessment Gait Gait Assistance Required: Standby Assistance Distance (Feet) 400 Able to Maintain Weight Bearing Status Yes During Gait Assistive Devices Assistive Device None,Gait Belt Orthotic/Prosthetic Devices or Brace: No Factors Limiting Gait Function Factors Limiting Gait Function Decreased Activity Tolerance Comments Gait Comments See mobility comments. Stair Climbing Assessment Evaluation Level of Assist On Stairs Standby Assistance Devices Stair Climbing Assistive Devices Left Railing,Right Railing Technique/Endurance Stair Climbing Direction Ascend and Descend Stair Climbing Technique Step Over Step Number of Steps Climbed 15 Comments Stair Climbing Comments See mobility comments. M5 PT-IP Objective Assessments Start: 12/06/22 12:30 Freq: NEEDED Status: Active Protocol: Document 12/06/22 14:02 AMH (Rec: 12/06/22 14:23 AMH [id number]) Orientation Orientation/Cognition Level of Alertness Alert Language Function Ability No Deficits Noted Safety Awareness Understands Safety Issues Memory Description No Deficits Noted Gross Range of Motion Upper Extremity ROM Assessment Within Functional Limits Lower Extremity ROM Assessment Within Functional Limits Strength Upper Extremity Strength Assessment Within Functional Limits Lower Extremity Strength Assessment Within Functional Limits Coordination Assessment Gross Coordination Gross Coordination WNL Muscle Tone Muscle Tone WNL Yes M6 PT-IP Treatment Start: 12/06/22 12:30 Freq: NEEDED Status: Active Protocol: Document 12/06/22 14:02 AMH (Rec: 12/06/22 14:23 AMH [id number]) Physical Therapy Treatment Exercises Exercises Ankle Pumps M7 PT-IP Assessment and Plan Start: 12/06/22 12:30 Freq: NEEDED Status: Active Protocol: Document 12/08/22 14:30 TS (Rec: 12/08/22 14:39 TS [id number]) PT Summary Assessment and Plan Potential Rehabilitation Potential Excellent Summary Impairments Pain,Gait,Activity Tolerance Progress Towards Goals Progressing Toward Goals Assessment Summary Pt continues to be SBA for all bed mobility and sit to stands with no AD. She continues to ambulate ~400 SBA with no AD, improved balance today with arms at side and quicker pace gait. She performed stairs x15, no buckling or LOB, descended stairs backwards. PT is recommending return home with assist from spouse. Goals Bed Mobility Goal Independent Transfer Goal Standby Assistance Gait Goal Standby Assistance Other Goals pt is able to ambulate up and down 2 sets of stairs Days to Meet Goals 5 Frequency of Treatment Frequency Of Treatment Once a Day Treatment Plan Physical Therapy Treatment Plan Bed Mobility Training,Transfer Training,Gait Training Other Recommendations and Next Treatment pt may want a fww for home use Focus at DC Weight Bearing Status Weight Bearing Status Full Weight Bearing Recommendations To Nursing Amount of Assist Needed Standby Assistance Discharge Recommendations PT Discharge Recommendations Home with Assistance Other Discharge Recommendations Will be staying at dad's house after d/c. Transportation Needs at Discharge Private Vehicle
--- NOTE | 2022-12-08 14:09 | PM.PNPO.1 ---
Subjective Subjective Date Patient Seen: 12/08/22 Time Patient Seen: 14:09 Interval history: No major events. Tolerated regular diet no nausea or vomiting. Minimal appetite. Feels bloated. Passing small amounts of gas. Ambulatory Exam Vital Signs (past 8 hours): - 12/08/22 07:00 12/08/22 07:00 Temperature 96.9 F L Pulse Rate 60 Respiratory Rate 18 Blood Pressure 120/72 Pulse Oximetry 95 100 Oxygen Delivery Method Room Air Oxygen Flow Rate 0 Oxygen Delivery Method Room Air Oxygen Flow Rate 0 Narrative Exam Narrative: General adult woman alert oriented no acute distress Chest nonlabored respiration Abdomen soft nontender nondistended Objective Labs 12/08/22 05:00 12/08/22 05:00 Labs: Laboratory Results - last 24 hr 12/08/22 12/08/22 05:00 05:00 WBC 9.9 RBC 3.87 L Hgb 12.2 Hct 35.3 L MCV 91.2 MCH 31.5 MCHC 34.6 RDW 13.3 Plt Count 206 Neut % (Auto) 82.8 H Lymph % (Auto) 8.4 L [place] % (Auto) 5.8 Eos % (Auto) 2.7 Baso % (Auto) 0.3 Neut # (Auto) 8200 H Lymph # (Auto) 800 L [place] # (Auto) 600 Eos # (Auto) 300 Baso # (Auto) 0 Sodium 135 L Potassium 3.6 Chloride 104 Carbon Dioxide 28 BUN 11 Creatinine 0.79 Estimated GFR > 60 BUN/Creatinine Ratio 13.9 Glucose 99 Calcium 8.0 L PFSH Medical History Hyperlipidemia Hypertension Social History household members: spouse Smoking Status: Never smoker Assessment & Plan Post-op Postoperative Procedures: Procedures Operation Date: 12/05/22 14:30 Actual Procedure Side Surgeon p Exploratory Laparotomy and Right Hemicolectomy Not Applicable Regis De Anda MD Postoperative status narrative: 67-year-old woman postoperative day 3 status post right hemicolectomy for obstructing colon cancer. She is doing well and has progressed appropriately. She has moderate amount of bloating but is gradually regaining bowel function. Anticipate discharge home tomorrow -
[2022-12-08] MEDS: polyethylene glycoL 3350 17 GM POWD.PACK PO (15:38)
[2022-12-08] MEDS: levoFLOXacin 250 MG TABLET 750 MG PO (15:38)
--- NOTE | 2022-12-08 15:49 | PC.NURSE ---
a/o, voices needs. rooming in, assisting her w/ cares. patient reports passing gas, less than yesterday. feeling bloated. obtained order for PRN simethicone and also gave PRN reglan IVP- fairly effective. encouraged to continue to ambulate hallways, shower. Dr De Anad in to see pt, new orders for PO antibiotics, miralax, and tentative plan to d/c home tomorrow.
[2022-12-08 19:00] VITALS: O2SAT 98
[2022-12-08 20:14] VITALS: BP 116/68; PULSE 69; RESP 16; TEMP 36.9; O2SAT 98
[2022-12-09] MEDS: ACETAMINOPHEN 325 MG TABLET 650 MG PO (00:35)
[2022-12-09 08:00] VITALS: BP 127/70; PULSE 60; RESP 16; TEMP 36.5; O2SAT 98
[2022-12-09] MEDS: CELECOXIB 200 MG CAPSULE PO (08:06)
--- NOTE | 2022-12-09 11:36 | PC.NURSE ---
IV removed. Discussed worsening symptoms, signs and symptoms of infection and when to call the the doctor. Educated pt and spouse on diet, exercise restrictions, pain management, and constipation. no further questions. RN wheeled pt out to private vehicle via wheelchair with spouse.
--- NOTE | 2022-12-10 12:37 | PM.DS.1 ---
History of Present Illness History of Present Illness Chief complaint: Rt Lower abd pain Narrative: Ms. Sykes is a generally healthy 67-year-old woman who was admitted to [facility] 12/04 with complaint abdominal pain. She reports the development of severe right lower quadrant pain with associated bloating. She relays that for the past 2 years she is felt unwell and has noticed marked abdominal distention which is abnormal for her. Apparently during this time she did have a attempted colonoscopy at an outside institution which was incomplete secondary to tortuosity and then had a follow-up colonoscopy performed elsewhere which was perhaps completed but inadequate due to the quality of the preparation. She is actually scheduled for a outpatient colonoscopy next week. When she presented to the emergency department yesterday her laboratory studies were largely unremarkable with the exception of a elevated total bilirubin at 1.9 and a CEA level of 7. CT abdomen pelvis demonstrates abnormal thickening of a segment of transverse colon as well as hyperattenuation of the omentum possibly representing carcinomatosis. On my read of the imaging the small bowel is somewhat dilated and consistent with a partial obstruction. No family history of intestinal malignancy. Following admission an attempt was made to bowel prep the patient and within 20 30 minutes she was nauseous and with emesis and unable to tolerate further prep. We re-tried bowel prep this morning with a similar response. Discharge Providers Provider Date of admission: 12/04/22 22:49 Discharge Date: 12/09/22 Primary care physician: Doctor Augustin MD Consults: 12/04/22 23:50 Consult to Pastoral Services Routine Comment: would like a visit if awake 12/05/22 17:20 Consult to Discharge Planning Routine Comment: Consult to Occupational Therapy Evaluate & Treat Comment: Physician Instructions: Evaluate and treat Consult to Physical Therapy Evaluate & Treat Comment: Physician Instructions: Evaluate and Treat Discharge provider: Regis De Anda MD Summary Hospital Course Discharge Diagnosis: Peritonitis Colonic mass Large bowel obstruction Hospital Course: Patient underwent a exploratory laparotomy 12/05 which demonstrated a large obstructing and perforated mass in the mid transverse colon. Multiple mesenteric lymph nodes were enlarged within the right and transverse mesocolon however there was no evidence of distant disease. She ultimately recovered well. She had return of bowel function pain was well controlled and she was discharged home on postoperative day 4. At this time her pathology is pending. Exam Vital Signs (past 8 hours): Oxygen Delivery Method Room Air Oxygen Flow Rate 0 Narrative Exam Narrative: General adult woman alert oriented no acute distress Chest nonlabored respiration Abdomen soft appropriately tender to palpation. Midline incision is clean dry intact with raina. Objective Labs 12/08/22 05:00 12/08/22 05:00 [facility] Medical History Hyperlipidemia Hypertension Social History household members: spouse Smoking Status: Never smoker Discharge Plan Discharge Plan Patient Disposition: Home Provider Discharge Comment: No lifting >20lbs x 4 weeks Ok to shower, leave dressing in place until staple removal Do not submerge wound in water until seen in follow up Office will call to schedule follow up appointment. Will call with pathology results Discharge orders & Medications Prescriptions: New ibuprofen 200 mg tablet 400 mg PO Q6H Qty: 60 0RF acetaminophen [Tylenol] 325 mg capsule 650 mg PO QID PRN (Reason: pain) Qty: 60 0RF Continued simvastatin 20 mg tablet 20 mg PO ONCE PM Follow up/Referrals: Regis De Anda MD [Physician] - 12/17/22 12:45 pm (Appt:12/17 check in at 12:[address] De Anda ) Diet/Activity/Treatments Diet: Diet as Tolerated Skin/Wound/Dressing Care Report to your healthcare provider any signs of infection, such as:: chills, fever, increased pain, unusual drainage and unusual redness Visit Report/Discharge Packet Instructions: How to Avoid Gas, Intestinal Gas (Alternative Therapy), DI for Colectomy Stand Alone Forms: Patient Portal/API, Stroke Signs & Symptoms Discharge Data Primary Care Provider: Miscellaneous,Doctor Discharges patient from system. Discharge Date/Time: 12/09/22 11:20
== END 2022-12-09 11:20 | disposition home or self-care (01) | DRG 329 ==
LOC: ED 22:37 → AC 12-05 08:47
PROVIDERS: Surgery; Admitting Provider Surgery; Emergency Provider Emergency Medicine; Referring Provider Emergency Medicine; Visit Provider Surgery
PROC: 0DTF0ZZ Resection of Right Large Intestine, Open Approach (ICD-10-PCS; CPT 49000; principal; 2022-12-05 14:30)
DX: K57.20 Diverticulitis of large intestine with perforation and abscess without bleeding (principal); K65.0 Generalized (acute) peritonitis; K65.1 Peritoneal abscess; E78.5 Hyperlipidemia, unspecified
CPT/HCPCS: 36415; 44140; 44160; 74177; 80048; 80053; 81001; 82378; 85025; 86301; 86304; 97116; 97161; 97165; 97535; 99222; 99284; C9290; J0330; J1100; J1170; J1650; J1885; J2405; J2543; J2704; J2765; J3010; Q9967

== ENCOUNTER 2023-07-27 12:20 | Day surgery (SDC) | payer MEDICARE, SELFPAY ==
[2022-12-04 23:45] VITALS: BMI 20.6
[2023-07-27 12:52] VITALS: BP 110/70; PULSE 53; RESP 18; TEMP 36.7; O2SAT 98
[2023-07-27] MEDS: LACTATED RINGERS 1,000 ML 42 ML IV (12:59)
--- NOTE | 2023-07-27 13:18 | PM.HP.1 ---
History of Present Illness History of Present Illness Date Patient Seen: 07/27/23 Chief complaint: Colonoscopy Narrative: 68-year-old woman here for screening colonoscopy. Last colonoscopy was incomplete and several years ago. No family history of intestinal malignancy. Last year she underwent a laparoscopic assisted right hemicolectomy for perforated diverticulitis. She reports doing well her bowels are functioning normally. [facility] Medical History Hyperlipidemia Hypertension Surgical History History of hemicolectomy Social History household members: spouse Smoking Status: Never smoker Meds Home Medications and Allergies Home Medications Medication Instructions Recorded Confirmed Type simvastatin 20 mg tablet 20 mg PO ONCE PM 12/04/22 07/27/23 History acetaminophen 325 mg capsule 650 mg (2 x 325 mg) PO QID PRN 12/09/22 07/27/23 Rx (Tylenol) pain #60 caps ibuprofen 200 mg tablet 400 mg (2 x 200 mg) PO Q6H #60 tabs 12/09/22 07/27/23 Rx Allergies Allergy/AdvReac Type Severity Reaction Status Date / Time No Known Drug Allergies Allergy Verified 07/27/23 12:51 Exam Vital Signs (past 8 hours): - 07/27/23 12:52 Temperature 98.0 F Pulse Rate 53 L Respiratory Rate 18 Blood Pressure 110/70 Pulse Oximetry 98 Oxygen Delivery Method Room Air Oxygen Delivery Method Room Air Narrative Exam Narrative: General adult woman alert oriented no acute distress Chest nonlabored respiration Extremities warm well perfused Assessment & Plan Assessment & Plan narrative: The patient requires colorectal screening and colonoscopy is recommended. Technical details were discussed. Risks, benefits, alternatives explained. Risks including but not limited to myocardial infarction, aspiration, bleeding, pain, missed lesion, incomplete examination, need for further radiographic studies, colonic perforation, and need for major abdominal surgery were discussed. All questions were answered to their satisfaction, and they are in agreement with this plan.
--- NOTE | 2023-07-27 13:23 | P.OP.COLON_ITS ---
Operative Date/Time/Diagnoses Date of procedure: 07/27/23 Time of procedure: 13:23 Pre-op diagnosis: Colorectal screening Procedure & Clinicians Study performed: Screening colonoscopy Same procedure as scheduled: Yes Indications: Colorectal screening Surgeon: Regis De Anda Procedure Notes Procedure in detail: The history and physical was performed/updated and the patient is ASA class is 1. The procedure was discussed in detail with the patient. Potential risks co mplications including infection, bleeding, missed diagnosis, perforation, need for surgery, and were explained. Their questions were answered and informed consent was obtained. Patient was brought to the procedure room and placed standard monitoring equipment. The patient's vital signs were monitored continuously throughout the entire procedure. Prior to starting time-out was performed. The patient was placed in the left lateral recumbent position. Procedural sedation was administered by anesthesia. Examination began with a thorough inspection of the perianal area there was no evidence of fissures, fistulae, external hemorrhoids or cutaneous malignancy. The colonoscopy scope was then placed into the anal canal and was advanced to the cecum, which was identified by the ileocecal valve, the appendiceal orifice and the confluence of the taenia. The scope was then slowly withdrawn examining colon thoroughly in all directions, irrigating it of any residual stool. The scope was retroflexed within the rectum The patient tolerated the procedure well. They will be discharged once criteria are met. The prep was of good/excellent quality. The withdrawl time was 7 minutes. FINDINGS * Normal ileocolonic anastomosis. * Colon mucosa is healthy, without masses polyps or inflammation. * No diverticulosis Specimen(s): none sent Impression: Normal colonoscopy status post right hemicolectomy Post-procedure Recommendations: Colonoscopy in 10 years Disposition: same day surgery
[2023-07-27 13:45] VITALS: BP 92/56; PULSE 68; RESP 18; TEMP 36.3; O2SAT 95
[2023-07-27 13:50] VITALS: BP 89/50; PULSE 62; RESP 18; O2SAT 95
[2023-07-27 13:55] VITALS: BP 98/37; PULSE 60; RESP 18; O2SAT 96
[2023-07-27 14:08] VITALS: BP 97/55; PULSE 60; RESP 18; O2SAT 99
== END 2023-07-27 14:16 | disposition home or self-care (01) ==
PROVIDERS: Referring Provider Surgery; Visit Provider Surgery
PROC: 0DJD8ZZ Inspection of Lower Intestinal Tract, Via Natural or Artificial Opening Endoscopic (ICD-10-PCS; CPT 45378; principal; 2023-07-27 13:15)
DX: Z12.11 Encounter for screening for malignant neoplasm of colon (principal); Z90.49 Acquired absence of other specified parts of digestive tract
CPT/HCPCS: G0121; J2704